=== PATIENT | female | born 1980 | race Hispanic/Latino ===

== ENCOUNTER 2024-11-12 18:35 | Emergency (ER) | payer BC ==
[~2024-11-12] VITALS: Ht 165.1 cm; Wt 68.0 kg
[2024-11-12 19:34] LABS: RAPID GROUP A STREP negative (NEGATIVE)
[2024-11-12 19:41] LABS: HEMATOCRIT 41.4 % (36-48); MEAN CORPUSCULAR HEMOGLOBIN 31.5 pg (27.0-33.0); MEAN CORPUSCULAR HGB CONC 32.9 g/dL (32.0-36.0); MEAN CORPUSCULAR VOLUME 95.8 fL (79-99); RED BLOOD CELL COUNT(AUTO) 4.32 MIL/uL (4.00-5.50); RED CELL DISTRIBUTION WIDTH 12.3 % (11.0-15.5); WHITE BLOOD COUNT (AUTO) 7.5 K/uL (4.8-10.8)
[2024-11-12 19:45] LABS: INFLUENZA TYPE A Negative For Type A (NEGATIVE); INFLUENZA TYPE B Negative For Type B (NEGATIVE)
[2024-11-12 19:50] LABS: CREATININE 0.9 mg/dL (0.5-1.0); POTASSIUM 3.7 mmol/L (3.5-5.1)
[2024-11-12] MEDS ORDERED: BENZ-39 PO (20:40)
[2024-11-12] MEDS ORDERED: METH4TAB3 PO (20:40)
--- NOTE | 2024-11-12 20:42 | ERN ---
General Chief Complaint: Headache Stated Complaint: COUGH, HEADACHE Time Seen by MD: 18:58 Time Seen by Midlevel: 18:58 Source: patient History of Present Illness Initial Comments Patient is a 44-year-old female with no significant past medical history presenting to the emergency department with generalized body aches and a cough that started yesterday but worsened today. Denies any fever, chills, or any other symptoms at this time. She does report taking [id number] flu med ication with little to no relief. She developed a headache so she decided to report to the emergency department for further evaluation. Allergies: Coded Allergies: No Known Drug Allergies (Unverified Allergy, Unknown, 11/12/24) Home Meds Active Scripts Methylprednisolone (Medrol) 4 Mg Tab.ds.pk, 1 TAB PO AD for 6 Days, #21 TAB 0 R efills 6 on day 1 then reduce by one tablet daily until gone Prov:BRETT SINGH 11/12/24 Benzonatate (Tessalon Perles) 100 Mg Cap, 100 MG PO TID for cough for 10 Days, #30 CAP 0 Refills Prov:BRETT SINGH 11/12/24 Past Medical History Past Medical History: Other Medical History Other: THYROID PROBLEM Past Surgical History: Hysterectomy Surgical History Other: THYROIDECTOMY ROS Dictation CONSTITUTIONAL: Negative except for HPI HEAD/FACE: Negative except for HPI EENT: Negative except for HPI RESPIRATORY: Negative except for HPI GASTROINTESTINAL/ABDOMINAL: Negative except for HPI GENITOURINARY: Negative except for HPI MUSCULOSKELETAL: Negative except for HPI INTEGUMENTARY: Negative except for HPI NEUROLOGICAL/PSYCH: Negative except for HPI HEMATOLOGIC/LYMPHATIC: Negative except for HPI All Systems Negative, Except as noted above. 13 point review of systems assessed and all negative except for above. Physical Exam Physical Exam Dictation Vital Signs reviewed General Appearance: Alert, oriented x 3, no acute distress, well developed, nourished. Head and Face: non-traumatic. Eyes: PERRL, pink conjunctivas, eyelid no trauma, anterior chamber with arcus senilis. Ears: Pinnas intact and no signs of trauma or erythema ear canals clear and no discharge TM no erythema Nose: No discharge, no bleeding. Oropharynx: Mouth normal, tongue pink, pharynx clear,no erythema, tonsils no exudates, no abscesses noted, mucous membrane moist Neck: Supple, non-tender, no thyromegaly, no masses, no JVD, no bruits Breast:Deferred Chest:No tenderness, no crepitus, no paradoxical movement, no retractions Lungs:Clear, well-ventilated, symmetric, no rales, no wheezing, no rhonchi, no stridor, good breath sounds bilaterally Heart: Regular rate, regular rhythm, no murmur, no gallops Vascular: no peripheral edema, Abdomen: Soft, positive bowel sounds, nondistended, no guarding, nontender, no rebound, no masses no hepatomegaly, no splenomegaly, no Pantoja's sign, no hernias. Rectal: Deferred Genital: Deferred Neurological: Normal speech, motor function intact, sensory function intact Musculoskeletal: Neck nontender, full range of motion, back nontender, full range of motion, Extremities: nontender, full range of motion Skin: Color pink, dry, no turgor, no rash, no lacerations, no abrasions, no contusions. Lymphatic: Deferred Results Laboratory and Microbiology Lab and Micro Result Laboratory Tests Test 11/12/24 19:05 11/12/24 19:36 Influenza Type A Antigen Negative For Type A Influenza Type B Antigen Negative For Type B Group A Streptococcus Rapid negative (NEGATIVE) White Blood Count 7.5 K/uL (4.8-10.8) Red Blood Count 4.32 MIL/uL (4.00-5.50) Hemoglobin 13.6 g/dL (12.0-16.0) Hematocrit 41.4 % (36-48) Mean Corpuscular Volume 95.8 fL (79-99) Mean Corpuscular Hemoglobin 31.5 pg (27.0-33.0) Mean Corpuscular Hemoglobin Concent 32.9 g/dL (32.0-36.0) Red Cell Distribution Width 12.3 % (11.0-15.5) Platelet Count 230 K/uL (130-400) Mean Platelet Volume 10.7 fL (7.5-10.5) H Nucleated Red Blood Cells 0.0 % (0.0-0.19) Sodium Level 138 mmol/L (136-145) Potassium Level 3.7 mmol/L (3.5-5.1) Chloride Level 100 mmol/L (101-111) L Carbon Dioxide Level 31 mmol/L (21-32) Blood Urea Nitrogen 11 mg/dL (7-18) Creatinine 0.9 mg/dL (0.5-1.0) Glomerular Filtration Rate Calc 80 mL/min (>90) Random Glucose 115 mg/dL (70-105) H Total Calcium 8.8 mg/dL (8.5-10.1) Labs Reviewed?: Yes MDM MDM: Patient is a 44-year-old female with no significant past medical history presenting to the emergency department with generalized body aches and a cough that started yesterday but worsened today. Denies any fever, chills, or any other symptoms at this time. She does report taking [id number] flu medication with little to no relief. She developed a headache so she decided to report to the emergency department for further evaluation. On physical examination patient is in no acute respiratory distress. Vital signs are stable. We collected basic blood work to assess for dehydration or any other electrolyte abnormalities however her CBC and chemistries unremarkable. Her CBC shows a normal white blood cell count. Hemoglobin and platelets are stable. Chest x-ray shows some mild pulmonary congestion we will discharged home with supportive management including azithromycin. Differential diagnosis: Viral syndrome, pneumonia, bronchitis There are no social concerns with this patient. Prescription drug management Prescriptions will include: Medical management and examination interpretation discussions were had by me with other qualified healthcare professionals as indicated for the patient's care. ED Course Orders Procedure Category Date Status Time Cbc Without LAB 11/12/24 Complete Differential 18:41 Influenza Type A & B, LAB 11/12/24 Complete Rapid 18:41 Rapid (Group A Strep) LAB 11/12/24 Complete 18:41 Basic Metabolic Panel LAB 11/12/24 Complete 19:06 Chest 1vw RAD 11/12/24 Resulted 19:06 Vital Signs Date Time Temp Pulse Resp B/P (MAP) Pulse Ox O2 Delivery O2 Flow Rate FiO2 11/12/24 20:46 98.8 95 16 125/75 98 Room Air* 0 11/12/24 19:07 99.3 98 16 130/80 98 Room Air* 0 11/12/24 18:37 99.3 98 18 130/82 98 Room Air DX & DISP Disposition: Discharge Departure Impression: Primary Impression: Viral illness Condition: Stable Scripts Methylprednisolone (Medrol) 4 Mg Tab.ds.pk 1 TAB PO AD for 6 Days, #21 TAB 0 Refills 6 on day 1 then reduce by one tablet daily until gone Prov: BRETT SINGH 11/12/24 Benzonatate (Tessalon Perles) 100 Mg Cap 100 MG PO TID for cough for 10 Days, #30 CAP 0 Refills Prov: BRETT SINGH 11/12/24 Additional Instructions: Your blood work today is unremarkable. You have tested negative for influenza a, influenza B, and COVID-19. Your chest x-ray does not show any evidence of pneumonia. Your symptoms are most likely viral in nature. I have given you some prescriptions that should help improve your symptoms over the next couple of days. Please follow up with your primary care doctor in 2-3 days for repeat evalu ation. If you develop any new or worsening symptoms please report to the ER for further evaluation. Referrals: SELF,REFERRAL (PCP) Time of Disposition: 20:39 I have reviewed the case, and I agree with, Diagnosis and Plan I performed the substantive portion of the visit. I have reviewed and personally made and approve the management plan that is documented in the note by myself or the BRENDA. I acknowledge for responsibility for the patient's management plan. BRETT SINGH Nov 12, 2024 20:42 KOREY CARVER DO Nov 13, 2024 02:17
[2024-11-12 20:46] VITALS: BP 125/75; PULSE 95; RESP 16; TEMP 98.8; O2SAT 98
--- NOTE | 2024-11-12 23:05 | HMCIMG ---
CHEST 1VW HISTORY: Shortness of breath COMPARISON: None FINDINGS: A frontal projection of the chest was obtained. No acute pulmonary infiltrates is seen. The heart is normal in size. Prominent interstitial markings are seen. No evidence of aortic calcification is seen. IMPRESSION: 1. No acute pulmonary infiltrate is seen.
== END 2024-11-12 20:53 | disposition home or self-care (01) ==
LOC: EDH 18:35
DX: B34.9 Viral infection, unspecified (principal); Z90.710 Acquired absence of both cervix and uterus; Z79.899 Other long term (current) drug therapy
CPT/HCPCS: 36415; 71045; 80048; 85027; 87804; 87880; 99283